=== PATIENT | female | born 1940 | race Caucasian/White ===

== ENCOUNTER 2017-04-27 00:24 | Day surgery (SDC) | payer MEDICARE, OTHER ==
[~2017-04-27 00:24] MED LIST: ACET500; CALCA500CH PO; CHOL10002 PO; CIPR500 PO; Centrum Silver1 EAC1 PO; FOLI1 PO; Flagyl500 MG PO; LIDO5TP TOP; LISI20 PO; Loperamide2 MG PO; METTREX2.5 PO; POLY500 PO; Preservision A1 EACH PO; Remicade100 MG IV; TUMS X-STR300 MG PO; Vitamin B Comple1 EA PO
[2017-04-27 09:40] LABS: Alanine Aminotransfer (ALT/SGP 22 U/L (12-78); Albumin, Blood 3.9 g/dL (3.4-5.0); Albumin/Globulin Ratio 1.3 (0.8-1.8); Alk Phos 60 U/L (50-136); Anion Gap 7 mmol/L (6-16); Aspartate Aminotrans (AST/SGOT 16 U/L (12-37); Bilirubin, Total 0.5 mg/dL (0.1-1.0); Blood Urea Nitrogen 19 mg/dL (8-24); Bun/Creatinine Ratio 25.2 (12.0-20.0); C-REACTIVE PROTEIN, EXT RANGE <0.290 mg/dL (0.000-0.300); CO2, Blood 28 mmol/L (21-32); Calcium, Blood 9.1 mg/dL (8.5-10.1); Chloride, Blood 106 mmol/L (98-108); Creatinine, Blood 0.76 mg/dL (0.40-1.00); Glomerular Filtration Rate >60 (60-); Glucose, Blood 91 mg/dL (70-99); Potassium, Blood 4.2 mmol/L (3.5-5.5); Sodium, Blood 141 mmol/L (136-145); Total Protein, Blood 6.9 g/dL (6.4-8.2)
[2017-04-27 11:45] LABS: BASOPHILS ABSOLUTE AUTO 0.02 K/mm3 (0.00-0.23); BASOPHILS PERCENT AUTO 0 % (0-2); EOSINOPHILS PERCENT AUTO 2 % (0-6); Hematocrit 43.3 % (33.0-51.0); Hemoglobin 14.3 g/dL (11.5-16.0); IMMATURE GRAN ABSOLUTE AUTO 0.01 K/mm3 (0.00-0.10); IMMATURE GRAN PERCENT AUTO 0 % (0-1); LYMPHOCYTES ABSOLUTE AUTO 1.69 K/mm3 (0.84-5.20); LYMPHOCYTES PERCENT AUTO 37 % (21-46); MONOCYTES ABSOLUTE AUTO 0.56 K/mm3 (0.16-1.47); MONOCYTES PERCENT AUTO 12 % (4-13); Mean Corpuscular HGB 33.9 pg (26.0-34.0); Mean Corpuscular Volume 103 fL (80-100); Mean Platelet Volume 10.9 fL (9.1-12.4); NEUTROPHILS ABSOLUTE AUTO 2.25 K/mm3 (1.96-9.15); NEUTROPHILS PERCENT AUTO 49 % (41-73); Platelet Count 260 K/mm3 (150-400); RDW Coefficient Variation 15.3 % (11.7-14.2); RDW Standard Deviation 57.6 fL (35.1-46.3); Red Blood Cell Count 4.22 M/mm3 (3.80-5.20); White Blood Cell Count 4.63 K/mm3 (4.00-11.30)
== END 2017-04-27 10:54 | disposition home or self-care (01) ==
LOC: ATC 00:24
PROVIDERS: Internal Medicine Rheumatology
DX: M06.09 Rheumatoid arthritis without rheumatoid factor, multiple sites (principal); Z79.899 Other long term (current) drug therapy; I10 Essential (primary) hypertension; J44.9 Chronic obstructive pulmonary disease, unspecified
CPT/HCPCS: 80053; 85025; 85651; 86140; 96413; J7050; Q5102-ZB

== ENCOUNTER 2017-07-06 00:21 | Day surgery (SDC) | payer MEDICARE, OTHER ==
[2017-07-06 09:18] LABS: BASOPHILS ABSOLUTE AUTO 0.02 K/mm3 (0.00-0.23); BASOPHILS PERCENT AUTO 0 % (0-2); EOSINOPHILS ABSOLUTE AUTO 0.03 K/mm3 (0.00-0.68); EOSINOPHILS PERCENT AUTO 1 % (0-6); Hemoglobin 14.4 g/dL (11.5-16.0); IMMATURE GRAN ABSOLUTE AUTO 0.01 K/mm3 (0.00-0.10); IMMATURE GRAN PERCENT AUTO 0 % (0-1); LYMPHOCYTES ABSOLUTE AUTO 1.15 K/mm3 (0.84-5.20); LYMPHOCYTES PERCENT AUTO 25 % (21-46); MONOCYTES ABSOLUTE AUTO 0.67 K/mm3 (0.16-1.47); MONOCYTES PERCENT AUTO 15 % (4-13); Mean Corpuscular HGB 33.1 pg (26.0-34.0); Mean Corpuscular HGB Conc 32.7 g/dL (31.5-36.5); Mean Corpuscular Volume 101 fL (80-100); Mean Platelet Volume 10.3 fL (9.1-12.4); NEUTROPHILS ABSOLUTE AUTO 2.66 K/mm3 (1.96-9.15); NEUTROPHILS PERCENT AUTO 59 % (41-73); Platelet Count 241 K/mm3 (150-400); RDW Coefficient Variation 14.1 % (11.7-14.2); RDW Standard Deviation 53.1 fL (35.1-46.3); Red Blood Cell Count 4.35 M/mm3 (3.80-5.20); White Blood Cell Count 4.54 K/mm3 (4.00-11.30)
[2017-07-06 09:41] LABS: Alanine Aminotransfer (ALT/SGP 25 U/L (12-78); Albumin/Globulin Ratio 1.3 (0.8-1.8); Alk Phos 64 U/L (50-136); Anion Gap 4 mmol/L (6-16); Aspartate Aminotrans (AST/SGOT 16 U/L (12-37); Bilirubin, Total 0.4 mg/dL (0.1-1.0); Blood Urea Nitrogen 26 mg/dL (8-24); Bun/Creatinine Ratio 30.2 (12.0-20.0); C-REACTIVE PROTEIN, EXT RANGE <0.290 mg/dL (0.000-0.300); CO2, Blood 27 mmol/L (21-32); Calcium, Blood 9.1 mg/dL (8.5-10.1); Chloride, Blood 107 mmol/L (98-108); Creatinine, Blood 0.86 mg/dL (0.40-1.00); Glomerular Filtration Rate >60 (60-); Glucose, Blood 92 mg/dL (70-99); Potassium, Blood 4.4 mmol/L (3.5-5.5); Sodium, Blood 138 mmol/L (136-145)
== END 2017-07-06 10:50 | disposition home or self-care (01) ==
LOC: ATC 00:21
PROVIDERS: Internal Medicine Rheumatology
DX: M06.09 Rheumatoid arthritis without rheumatoid factor, multiple sites (principal); I10 Essential (primary) hypertension; F32.9 Major depressive disorder, single episode, unspecified; Z87.891 Personal history of nicotine dependence; J44.9 Chronic obstructive pulmonary disease, unspecified
CPT/HCPCS: 80053; 85025; 85651; 86140; 96413; J7050; Q5102-ZB

== ENCOUNTER → 2017-09-20 | Outpatient (CLI) | payer MEDICARE, OTHER | END | disposition home or self-care (01) | LOC: PLD 09:56 → LAB SHORT 09:56 | DX: D48.5 Neoplasm of uncertain behavior of skin (principal) | CPT/HCPCS: 88305 ==

== ENCOUNTER → 2018-09-19 | Outpatient (CLI) | payer MEDICARE, OTHER | END | disposition home or self-care (01) | LOC: PLD 08:14 → LAB SHORT 08:14 | DX: D22.5 Melanocytic nevi of trunk (principal); D48.5 Neoplasm of uncertain behavior of skin | CPT/HCPCS: 88305 ==

== ENCOUNTER 2020-04-04 09:53 | Day surgery (SDC) | payer MEDICARE, OTHER ==
[~2020-04-04] VITALS: Ht 152.4 cm; Wt 39.3 kg
[2020-04-04] MEDS ORDERED: LISI20 PO (10:19)
--- NOTE | 2020-04-04 12:17 | NUR ---
04/04/20 1217 Leah Morales PT DID GREAT DURING RECOVER, NO COMPLAINTS OF PAIN OR NAUSEA, VERY TALKATIVE AND FUN. SHE IS READY TO BE DISCHARGED HOME.
== END 2020-04-04 12:17 | disposition home or self-care (01) ==
LOC: ORSCSDS 09:53
PROVIDERS: Podiatrist Foot & Ankle Surgery
PROC: 0QSP04Z Reposition Left Metatarsal with Internal Fixation Device, Open Approach (ICD-10-PCS; principal; 2020-04-04 11:15)
DX: M21.612 Bunion of left foot (principal); I10 Essential (primary) hypertension; Z87.891 Personal history of nicotine dependence; G62.9 Polyneuropathy, unspecified; Z79.899 Other long term (current) drug therapy
CPT/HCPCS: J0171; J0690; J1100; J2405; J2704; J3010; J7120

== ENCOUNTER 2022-02-01 09:55 | Emergency (ER) | payer MEDICARE, OTHER ==
[~2022-02-01] VITALS: Ht 152.4 cm; Wt 35.4 kg
[2022-02-01] MEDS ORDERED: OXYC5 PO (11:25)
== END 2022-02-01 11:49 | disposition home or self-care (01) ==
LOC: ER 09:55
DX: G89.11 Acute pain due to trauma (principal); S32.10XA Unspecified fracture of sacrum, initial encounter for closed fracture; I10 Essential (primary) hypertension; Z87.891 Personal history of nicotine dependence; X58.XXXA Exposure to other specified factors, initial encounter
CPT/HCPCS: 99284

== ENCOUNTER 2022-03-15 04:21 | Inpatient (IN) | payer MEDICARE, OTHER ==
[~2022-03-15] VITALS: Ht 152.4 cm; Wt 41.0 kg
[~2022-03-15 04:21] MED LIST changes: +OXYC5 PO
[2022-03-15 06:30] LABS: Hematocrit 29.3 % (33.0-51.0); Hemoglobin 9.2 g/dL (11.5-16.0); Mean Corpuscular HGB 27.1 pg (26.0-34.0); Mean Corpuscular HGB Conc 31.4 g/dL (31.5-36.5); Mean Corpuscular Volume 86 fL (80-100); Mean Platelet Volume 9.6 fL (9.1-12.4); Platelet Count 405 K/mm3 (150-400); RDW Standard Deviation 58.5 fL (35.1-46.3); White Blood Cell Count 6.78 K/mm3 (4.00-11.30)
[2022-03-15 06:42] LABS: Magnesium, Blood 2.8 mg/dL (1.6-2.4)
[2022-03-15 06:52] LABS: Albumin, Blood 2.1 g/dL (3.4-5.0); Albumin/Globulin Ratio 0.6 (0.8-1.8); Bilirubin, Total 0.2 mg/dL (0.1-1.0); Bun/Creatinine Ratio 38.7 (12.0-20.0); Calcium, Blood 10.4 mg/dL (8.5-10.1); Creatinine, Blood 2.22 mg/dL (0.40-1.00); Globulin, Blood 3.7 g/dL (2.2-4.0); Potassium, Blood 6.4 mmol/L (3.5-5.5); Total Protein, Blood 5.8 g/dL (6.4-8.2)
[2022-03-15 07:08] LABS: Influenza A, PCR NEGATIVE (NEGATIVE); Influenza B, PCR NEGATIVE (NEGATIVE); Resp Syncytial Virus, PCR NEGATIVE (NEGATIVE); SARS-Cov-2 (COVID-19) PCR, MMC NEGATIVE (NEGATIVE)
[2022-03-15 07:19] LABS: BASOPHILS PERCENT MAN 0 % (0-2); EOSINOPHILS PERCENT MAN 0 % (0-6); TOTAL CELLS COUNTED 100
[2022-03-15 07:23] LABS: LYMPHOCYTES ABSOLUTE MAN 0.27 K/mm3 (0.84-5.20); LYMPHOCYTES PERCENT MAN 4 % (21-46)
[2022-03-15 07:24] LABS: BAND PERCENT MAN 32 % (0-8); MONOCYTES PERCENT MAN 3 % (4-13); SEG NEUTROPHILS PERCENT MAN 61 % (41-73)
[2022-03-15 08:10] LABS: Calcium, Ionized (POC) 1.27 mmol/L (1.10-1.46); Chloride (POC) 106 mmol/L (98-108); Creatinine (POC) 2.1 mg/dL (0.6-1.0); Glucose (ISTAT POC) 195 mg/dL (70-99); Hemoglobin (POC) 8.2 g/dL (12.0-16.0); Potassium (POC) 5.1 mmol/L (3.5-5.5); Sodium (POC) 138 mmol/L (135-148); Total CO2 (POC) 27 mmol/L (21-32)
--- NOTE | 2022-03-15 11:52 | NUR ---
ARRIVAL TO ICU PT BROUGHT TO ICU VIA GURNEY. PT IS A&OX4. ANXIOUS AT TIMES, WHEN ASKING ABOUT MEDICAL HISTORY SHE REPEATEDLY STS "IT'S ALREADY ON MY FILE. I JUST WANT TO REST". SHE IS RECEIVING LR. LEVOPHED AT BEDSIDE IF NEEDED. MAP >65. NSR WITH RATE IN 80S. PT DENIES CP. ABDOMEN SLIGHTLY TENDER. DISTENDED AREA ON RUQ/RLQ. PT REPORTS IT HAS "GOTTEN BIGGER OVER THE LAST TWO WEEKS". SHE REPORTS DECREASED APPETITE AND RECENT WEIGHT LOSS. REPORT OF LOOSE STOOL AND INCONTINENCE OVER THE LAST MONTH. PUREWICK IN PLACE. PT REPORTS FEELING LIKE SHE CANNOT EMPTY HER BLADDER. ALMANZA PLACED AND SAMPLE SENT TO LAB. PRESSURE ULCER ON COCCYX, PHOTO IN CHART. SEE SHIFT ASSESSMENT.
[2022-03-15 12:59] LABS: Bun/Creatinine Ratio 41.6 (12.0-20.0); Calcium, Blood 9.4 mg/dL (8.5-10.1); Creatinine, Blood 1.78 mg/dL (0.40-1.00); Potassium, Blood 5.2 mmol/L (3.5-5.5)
[2022-03-15 13:22] LABS: International Normalized Ratio 1.04; Prothrombin Time Results 10.9 Sec (9.7-11.5)
[2022-03-15 13:39] LABS: Source, Urine Clean Catch
[2022-03-15 13:46] LABS: Appearance, Urine Clear (Clear); Bilirubin, Urine Neg (Neg); Blood, Urine Neg (Neg); Color, Urine Yellow (P-Yellow); Glucose Qualitative, Urine Neg (Neg); Ketones, Urine Neg (Neg); Leukocyte Esterase, Urine Neg (Neg); Nitrite, Urine Neg (Neg); Protein, Urine 2+ (Neg); Urobilinogen, Urine NORM (Normal)
[2022-03-15 13:58] LABS: Bacteria Not Seen /hpf; Hyaline Casts 0-2 /lpf (0-2); Red Blood Cells, Urine 0-2 /hpf (0-2); Squamous Epithelial Cells Not Seen /hpf (Few); White Blood Cells, Urine 0-2 /hpf (0-5)
[2022-03-15 15:09] LABS: Automated BF RBC Count 0.186 M/mm3 (0-0); Automated BF WBC Count 0.339 K/mm3 (0-999)
[2022-03-15 15:11] LABS: Body Fluid WBC Count 339 /mm3 (0-999); RBC Count, Body Fluid 186000 /mm3 (0-0)
--- NOTE | 2022-03-15 15:21 | NUR ---
UPDATE BEDSIDE THORACENTESIS COMPLETED BY RADIOLOGY AT BEDSIDE. PT TOLERATED WELL. REPORTS CONTINUED SOB WITH EXCERTION. PT REQUESTS TO REST AT THIS TIME. BED IN LOW POSITION, CALL LIGHT WITHIN REACH.
[2022-03-15 15:26] LABS: Appearance, Body Fluid Hazy (Clear); Color, Body Fluid Red (None-Yellow)
[2022-03-15 15:30] LABS: Lactate Dehydrogenase, Body Fl 993 U/L
[2022-03-15 15:33] LABS: Protein, Body Fluid 2.9 g/dL
[2022-03-15 16:42] LABS: Total Cell Count, Body Fluid 100
[2022-03-15 17:22] LABS: Hematocrit 29.3 % (33.0-51.0)
--- NOTE | 2022-03-15 17:30 | NUR ---
SHIFT SUMMARY PT REMAINS A&OX4. PLEASANT AFFECT AND PARTICIPATES IN CONVERSATION. PT REPORTS GENERALIZED WEAKNESS AND STS SHE HAS NOT BEEN SLEEPING WELL. SHE MAKES PURPOSEFUL MOVEMENTS WITH ALL EXTREMITIES AND ASSISTS WITH CARE. LUNGS ARE COARSE WITH RHONCHI, DIMINISHED IN BASES. SPO2 >93% ON 4L NC. THORACENTESIS DONE AT BEDSIDE TODAY. PT TOLERATED WELL. SMALL BANDAID IN PLACE OVER PUNCTURE SITE. NSR ON MONITOR WITH RATE 80S. MAP 59-68 WITH GOAL TO MAINTAIN MAP >55. LEVOPHED ON EMAR IF NEEDED. PT DRANK A MILKSHAKE, DENIED DINNER TRAY. REPORTS DECREASED APPETITE. ALMANZA PATENT AND DRAINING CLEAR/YELLOW URINE TO GRAVITY. STOOL SAMPLE COLLECTED TODAY. PT HAD 1 LARGE LIQUID BM, ATTENDS IN PLACE. PRESSURE ULCER TO COCCYX THAT HAS "BEEN THERE AWHILE", REPOSITIONED Q2. BED IN LOWEST POSITION, CALL LIGHT WITHIN REACH.
--- NOTE | 2022-03-15 20:05 | NUR ---
ASSUMED CARE OF PT AT 1900 PT RESTING IN BED AWAKE, MAKING PANTING SOUNDS. NO FAMILY OR GUESTS IN ROOM AT THIS TIME. SPO2 ALARMING FOR O2 SAT IN 80'S. NASAL SPO2 MONITOR INITIATED WITH BETTER PLETH AND READING. HR 90'S. BP 98/54 MAP OF 78. ALMANZA CATH DRAINING TO GRAVITY. PT STATES THAT SHE MAY NEED TO HAVE BM SOON. PT IS IN DEPENDS AT THIS TIME C/D/I. PT COMPLAINS OF 7/10 PAIN IN LOWER BACK. PRN MEDICATIONS GIVEN. SEE FULL ASSESSMENT FOR MORE INFORMATION.
--- NOTE | 2022-03-15 22:10 | NUR ---
CALLED HOSPITALIST DR HAILE. PT PAIN NOT MANAGED BY PRN TRISTEN. DR Hanna ORDERED FENT 25-50 MCG Q4 PRN.
[2022-03-16 03:43] LABS: Hematocrit 25.1 % (33.0-51.0); Hemoglobin 7.8 g/dL (11.5-16.0); Mean Corpuscular HGB 26.8 pg (26.0-34.0); Mean Corpuscular HGB Conc 31.1 g/dL (31.5-36.5); Mean Corpuscular Volume 86 fL (80-100); Mean Platelet Volume 9.4 fL (9.1-12.4); Platelet Count 315 K/mm3 (150-400); RDW Coefficient Variation 18.6 % (11.7-14.2); RDW Standard Deviation 57.4 fL (35.1-46.3); Red Blood Cell Count 2.91 M/mm3 (3.80-5.20); White Blood Cell Count 2.09 K/mm3 (4.00-11.30)
[2022-03-16 04:05] LABS: BAND PERCENT MAN 2 % (0-8); BASOPHILS ABSOLUTE MAN 0.02 K/mm3 (0.00-0.23); BASOPHILS PERCENT MAN 1 % (0-2); EOSINOPHILS ABSOLUTE MAN 0.22 K/mm3 (0.00-0.68); EOSINOPHILS PERCENT MAN 11 % (0-6); LYMPHOCYTES ABSOLUTE MAN 0.35 K/mm3 (0.84-5.20); LYMPHOCYTES PERCENT MAN 17 % (21-46); MONOCYTES ABSOLUTE MAN 0.06 K/mm3 (0.16-1.47); MONOCYTES PERCENT MAN 3 % (4-13); NEUTROPHILS ABSOLUTE MAN 1.42 K/mm3 (1.96-9.15); SEG NEUTROPHILS PERCENT MAN 66 % (41-73); TOTAL CELLS COUNTED 100
[2022-03-16 04:07] LABS: Albumin, Blood 1.6 g/dL (3.4-5.0); Albumin/Globulin Ratio 0.5 (0.8-1.8); Bilirubin, Total 0.3 mg/dL (0.1-1.0); Bun/Creatinine Ratio 42.6 (12.0-20.0); Calcium, Blood 8.9 mg/dL (8.5-10.1); Creatinine, Blood 1.29 mg/dL (0.40-1.00); Potassium, Blood 5.2 mmol/L (3.5-5.5); Total Protein, Blood 4.6 g/dL (6.4-8.2)
--- NOTE | 2022-03-16 05:51 | NUR ---
END OF SHIFT SUMMARY PT RESTING MOST THE SHIFT. A/O X4. LUNGS SOUNDS RHONCHI WITH DIMINISHED BASES. PERSISTANT COUGH, NON PRODUCTIVE THIS SHIFT. ALMANZA DRAINING TO GRAVITY WITH MODERATE OUTPUT THIS SHIFT. LOOSE STOOL BM. BP 70'S/50'S WITH HR 70'S. SPO2 >92% ON 4L NC. INSTANT DESAT WITH ANY EXERTION INCLUDING TALKING. LR RUNNING AT 150 MLS/HR. C/O PAIN IN LOWER AND MID BACK AREAS. PRESSURE WOUND ON COCCYX AREA COVERED WITH FOAM DRESSING. AREA WHERE PROCEDURE DONE WITH SMALL INCISION LOCATED ON MID BACK, DRESSING C/D/I. WILL CONTINUE TO MONITOR UNTIL REPORT GIVEN TO AM NURSE.
--- NOTE | 2022-03-16 07:15 | NUR ---
ASSUMPTION OF CARE PT WAKENS EASILY TO VERBAL STIMULI. PT REPORTS DECREASED APPETITE AND EATS MINIMAL AMOUNT OF BREAKFAST. ENCOURAGED TO DRINK ENSURE. PT C/O R SHOULDER/BACK AND GENERALIZED PAIN, MEDICATED PER EMAR. SHE REMAINS ON 4L NC WITH SPO2 >90%. SHE QUICKLY DESATURATES WITH PROLONGED CONVERSATION TO MID 80S. LUNGS ARE COARSE THROUGHOUT. NSR ON MONITOR WITH RATE IN 70S-80S. PT HYPOTENSIVE BUT MAP REMAINS >55. PT HAS LIQUID STOOL. ALMANZA PATENT AND DRAINING TO GRAVITY. BED IN LOW POSITION, CALL LIGHT WITHIN REACH. SEE SHIFT ASSESSMENT.
[2022-03-16 09:41] LABS: Stool Occult Blood Guaiac 1 Neg (Neg)
--- NOTE | 2022-03-16 13:21 | NUR ---
UPDATE DR JUAN CARLOS WEBSTER. NEW ORDER TO MAINTAIN MAP >60. PT AGREES TO PICC LINE PLACEMENT. PICC RN AT BEDSIDE.
--- NOTE | 2022-03-16 15:41 | NUR ---
Pt is 81, with hx of RA, HTN and COPD. She was admitted via ER with weakness yesterday. She reports losing 36 lbs in past 4.5 months unintentionally. She reports worsening weakness x's 2 weeks and dyspnea/cough x's [address] shows large mass in abdomen, a new liver mass. She also has dx of sepsis, pneumonia, and cancer with metastasis. Upon a brief discussion this morning she tells me she is still "absorbing" the new diagnosis of metastasis. She reports living with her , and she states she isn't sure he could physically care for her. She requests more time to process this information before making any decisions. Pain is also a major issue for this pt, currently being managed with fentanyl IV and oxycodone as needed. Palliative care to remain available.
--- NOTE | 2022-03-16 18:03 | NUR ---
SHIFT SUMMARY PT IS RECEIVING LEVOPHED 3MCG/MIN TO MAINTAIN MAP >60. SHE IS SINUS RHYTHM ON MONITOR WITH RATE IN 70S-80S. SHE IS ON 4L NC. SHE CONTINUES TO HAVE AN OCCASIONAL COUGH. LUNGS ARE COARSE, DIMINISHED IN BASES. EARLIER IN THE SHIFT SHE HAD R SHOULDER AND CHRONIC BACK PAIN, MEDICATED PER EMAR AND REPOSITIONED FOR COMFORT. SHE HAS BEEN SLEEPING ON AND OFF THROUGHOUT THE DAY. SHE TALKED WITH VISITORS THIS AFTERNOON. 1 LARGE LIQUID BM THIS AM. PT TALKED WITH FIRE FIGHTER AIRPORT. ENCOURAGED TO INCREASE CALORIC INTAKE. PT DRANK 2 ENSURES. ALMANZA PATENT AND DRAINING TO GRAVITY WITH 650ML OUTPUT. BED IN LOW POSITION, CALL LIGHT WITHIN REACH.
--- NOTE | 2022-03-16 19:46 | NUR ---
PATIENT AWAKE, AND RESTLESS. VERBALIZED THAT SHE IS FEELING SOB AND THAT SHE IS HAVING SEVERE PAIN 9/10 TO HER RIGHT SIDE INCREASING IN PAIN WITH DEEP BREATH. MEDICATED WITH PO OXYCODONE AND IV FENTANYL. PLACED AN ICE PACK TO RIGHT SIDE WHICH HELPED WITH THE PAIN YESTERDAY, AND PATIENT REPOSITIONED. PATIENT HAVING AUDIBLE WHEEZING WITH DEEP BREATH, UDN TX GIVEN. HYPOTENSION CONTINUES WITH LEVOPHED @ 3 MCG VIA PICC LINE TO RIGHT UPPER ARM. ALMANZA IN PLACE DRAINING CLEAR YELLOW URINE. DRESSING TO COCCYX CD&I
--- NOTE | 2022-03-16 21:32 | NUR ---
PATIENT AWAKE, C/O FEELING ANXIOUS AND REQUESTING SOMETHING TO HELP HER SLEEP. "JUST KNOCK ME OUT" DOCTOR LAZARA CALLED AND ONE TIME ORDER FOR ATIVAN OBTAINED.
--- NOTE | 2022-03-17 | NUR ---
PATIENT RESTING QUIETLY APPEARS TO BE SLEEPING. AWAKENS TO SLIGHT STIMULI, VERBALIZED THAT SHE IS FEELING LESS SOB AND PAIN IS 2/10. CONTINUE TO TITRATE LEVOPHED FOR HYPOTENSION. HUMIDIFICATION PLACED TO OXYGEN FOR COMFORT
--- NOTE | 2022-03-17 01:21 | NUR ---
PATIENT WAKE-UP FROM SOUND SLEEP ATTEMPTING TO GET OUT OF BED. LOOKING FOR HER BROTHERS. CONFUSED AND RESTLESS. WITH INCREASED ACTIVITY DECREASED OXYGEN. PATIENT PLACED ON NONREBREATHER 11L DUE TO MOUTH BREATHING. PATIENT NOW ANSWERING QUESTIONS APPROPRIATLY, YET CONTINUES TO HAVE GRUNTING BREATHS AND ATTEMPTS TO GET OUT OF BED FORGETING WHY SHE HAS MONITORS AND ALMANZA.
--- NOTE | 2022-03-17 02:50 | NUR ---
AT 0130 PATIENT MORE RELAXED AND CALM YET CONTINUES TO BE FORGETFUL. ABLE TO ASSIST WITH REPOSITIONING IN BED TO CHANGE LINEN AND LUCERO-CARE. PATIENT MEDICATED WITH FENTANYL TO HELP WITH BACK PAIN. PATIENT NOW SLEEPING WITH 5L/NC IN PLACE SATING 93-100% LEVOPHED TITRATED UP TO 4 MCG TO KEEP MAP >60.
[2022-03-17 03:56] LABS: Hematocrit 28.2 % (33.0-51.0); Hemoglobin 8.6 g/dL (11.5-16.0); Mean Corpuscular HGB 26.9 pg (26.0-34.0); Mean Corpuscular HGB Conc 30.5 g/dL (31.5-36.5); Mean Corpuscular Volume 88 fL (80-100); Platelet Count 343 K/mm3 (150-400); RDW Coefficient Variation 18.3 % (11.7-14.2); RDW Standard Deviation 57.8 fL (35.1-46.3); White Blood Cell Count 5.69 K/mm3 (4.00-11.30)
[2022-03-17 04:10] LABS: Bun/Creatinine Ratio 38.4 (12.0-20.0); Calcium, Blood 9.1 mg/dL (8.5-10.1); Creatinine, Blood 0.86 mg/dL (0.40-1.00); Magnesium, Blood 1.8 mg/dL (1.6-2.4); Potassium, Blood 4.7 mmol/L (3.5-5.5)
[2022-03-17 04:24] LABS: BAND PERCENT MAN 7 % (0-8); BASOPHILS PERCENT MAN 0 % (0-2); EOSINOPHILS ABSOLUTE MAN 0.45 K/mm3 (0.00-0.68); EOSINOPHILS PERCENT MAN 8 % (0-6); LYMPHOCYTES ABSOLUTE MAN 0.22 K/mm3 (0.84-5.20); LYMPHOCYTES PERCENT MAN 4 % (21-46); MONOCYTES ABSOLUTE MAN 0.11 K/mm3 (0.16-1.47); MONOCYTES PERCENT MAN 2 % (4-13); NEUTROPHILS ABSOLUTE MAN 4.89 K/mm3 (1.96-9.15); SEG NEUTROPHILS PERCENT MAN 79 % (41-73); TOTAL CELLS COUNTED 100
--- NOTE | 2022-03-17 05:17 | NUR ---
PATIENT WAKING UP EASILY WITH VERBAL STIMULI. BECOMING VERY SOB WITH FEELING OF AIR HUNGER AND RESTLESS AFTER REPOSITIONING. PATIENT LESS CONFUSED THAN LAST TIME. MEDICATED WITH FENTANYL AND PROVIDED EXTRA OXYGEN VIA NON-REBREATHER MASK.
--- NOTE | 2022-03-17 05:56 | NUR ---
DOCTOR YUE NOTIFIED OF PATIENTS AIR HUNGER AND INCREASED SOB AND DROP IN SAT DURING THE NIGHT. LUNG SOUNDS WITH RIGHT LUNG EXTREMELY DECREASED. AUDIBLE EXPIRATORY WHEEZES WITH ANXIETY. IV FLUIDS DECREASED TO 100 CC/HR AND CHEST XRAY ORDERED
--- NOTE | 2022-03-17 06:05 | NUR ---
SUMMARY PATIENT ANXIOUS OFF AND ON T/O NIGHT. NIGHT PROGRESSING BECOMING MORE RESTLESS WITH AIR HUNGER. AUDIBLE EXPIRATORY WHEEZING WITH INCREASED ANXIETY. MOIST COUGH WITH SCANT AMT OF THICK SPUTUM OBTAINED WITH DEEP ORAL SUCTION. NRB MASK IN PLACE UNTIL PATIENT ABLE TO RELAX. ON 4-5L/NC IN PLACE T/O NIGHT. LEVOPHED TITRATED T/O NIGHT CURRENTLY AT 4 MCG TO KEEP MAP >60.
--- NOTE | 2022-03-17 08:00 | NUR ---
ASSUMED CARE OF PATIENT AT 0700, SHE WAS SLEEPING WITH INCREASED RESPIRATIONS AND WORK OF BREATHING. OXYGEN VIA NASAL CANNULA, BP LABILE AND LEVOPHED @4MCG.
--- NOTE | 2022-03-17 10:07 | NUR ---
NGOC OLMOS,RN FROM PALLIATIVE CARE, PT'S TRES AND FRIEND KELLY HAD A FAMILY MEETING IN REGARDS TO CURRENT PLAN OF CARE. PT AND REPORT THAT SHE WOULD LIKE TO GET STABILIZED FROM THE PNEUMONIA AND BE ABLE TO GO HOME. SHE WANTS TO "FEEL BETTER" AND IS LOOKING FORWARD TO THE TREATMENT TO REMOVE SOME OF THE FLUID FROM HER LUNGS.
--- NOTE | 2022-03-17 10:48 | NUR ---
Joint visit this AM with Dr Orosco, this PC RN, director social service, and Primary RN. Pt resting in bed and appears significantly dyspneic. Pt's spouse Jose and family friend Osei at bedside. Dr Orosco reviews plan of care and discusses options. Comfort care and hospice also discussed. Offered therapeutic listening and answered questions. Pt and family would like to consider options. Ended visit to allow family and Pt time to process. Palliative Care will remain available.
--- NOTE | 2022-03-17 10:55 | NUR ---
HAS CANCELED THE THORACENTESIS BASED ON THE RESULTS OF THE LUNG SCAN, HE IS CURRENTLY SPEAKING WITH THE PATIENT ABOUT TREATMENT OPTIONS.
--- NOTE | 2022-03-17 11:42 | NUR ---
PT HAS BEEN INFORMED THAT THE THORACENTESIS WOULDN'T BE BENEFICIAL IN HER SITUATION. SHE UNDERSTANDS ABOUT THE CHEST TUBE AND THE MEDICATION. AND SPENT A GREAT DEAL OF TIME WITH HER EXPLAINING THE PROCEDURE, THE RISKS AND BENEFITS. SHE IS READY TO TRY THIS. SHE SEEMS TO BE ALMOST "STOIC" IN REGARDS TO ALL THE INFORMATION THAT HAS BEEN GIVEN TO HER. SHE JUST WANTS TO "BREATHE" BETTER.
--- NOTE | 2022-03-17 13:36 | NUR ---
PT PREPARED FOR CHEST TUBE PLACEMENT. PT WAS NOT LIKING THE POSITION, BUT TOLERATED WELL. INITIALLY OVER 300ML OF RED TINGED RETURN, PT GIVEN PAIN MEDS PER EMAR, THEN PUSHED THE tPA MEDICATION AND CLAMPED THE TUBING. PT WILL HAVE TUBING UNCLAMPED AT 1445. SHE IS TRYING TO REST. VISITORS COMING IN.
--- NOTE | 2022-03-17 17:53 | NUR ---
SUMMARY JARROD IS NEUROLOGICALLY INTACT, WITHOUT ANY DEFICIT RESPIRATORY: ON 4L/NC WITH NRB CLOSE BY. SHE USES THIS INTERMITTENTLY THROUGH- OUT THE DAY, NEEDED FOR BREATHING. SHE IS COURSE BREATH SOUNDS, DIMINISHED ON THE RIGHT. SHE HAS AUDIBLE RHONCHI MOST OF THE DAY WITH MOIST COUGH THAT SHE IS UNABLE TO RETURN ANY SPUTUM. HER OXYGEN SATURATIONS VARY FROM MID80'S TO 90'S. SHE HAS A CHEST TUBE TO THE RIB MIDCLAVICULAR LINE MID TRUNK, PLACED BY . IT HAS RETURNED OVER 650ML OF RED TINGED RETURN WITH A SLIGHT IM- PROVEMENT IN HER RESPIRATORY EFFORT. CARDIAC: SHE REMAIN ON NOREPINEPHRINE, MOSTLY AT 3-4 MCG/MIN TITRATE TO KEEP MAP >65. HEART RATE IN THE 80'S, MOSTLY SINUS, OCC PAC'S. GI: POOR APPETITE, TRIES TO DRINK ENSURE BUT GETS SHORT OF BREATH, FRIEND BROUGHT IN A MILKSHAKE THAT SHE HAS BEEN WORKING ON SINCE 1300. SHE HAS LIQUID BROWN DIARRHEA. : ALMANZA TO GRAVITY DRAINAGE WITH YELLOW RETURN. ONLY 300ML OUT THIS SHIFT. SKIN REMAINS COOL, PULSES PALP X 4, COCCYX REDDENED, MEPILEX IN PLACE, PINK LOTION TO THE PERINEUM REDDENED AREAS. PT CONTINUES TO ASK TO BE "KNOCKED OUT" AND HAS EXPRESSED HER DESIRE TO GO HOME. WILL CONTINUE TO WORK WITH FAMILY, PALLIATIVE CARE AND MEDICAL STAFF TO PLAN ACCORDINGLY. CONTINUE TO MONITOR AND TREAT, REPORT OFF TO NEXT SHIFT WHEN ABLE.
--- NOTE | 2022-03-17 18:57 | NUR ---
TO HELP PATIENT BE COMFORTABLE, PAIN MEDICATIONS GIVEN PER MAR, NEEDING TO TITRATE NOREPINEPHRINE HIGHER TO MAINTAIN MAP >65. WILL CONTINUE TO WATCH AND TREAT.
[2022-03-18 04:57] LABS: Hematocrit 29.3 % (33.0-51.0); Hemoglobin 8.9 g/dL (11.5-16.0); Mean Corpuscular HGB 27.1 pg (26.0-34.0); Mean Corpuscular HGB Conc 30.4 g/dL (31.5-36.5); Mean Corpuscular Volume 89 fL (80-100); Mean Platelet Volume 8.9 fL (9.1-12.4); Platelet Count 281 K/mm3 (150-400); RDW Coefficient Variation 18.6 % (11.7-14.2); RDW Standard Deviation 59.9 fL (35.1-46.3); Red Blood Cell Count 3.28 M/mm3 (3.80-5.20); White Blood Cell Count 7.26 K/mm3 (4.00-11.30)
[2022-03-18 05:26] LABS: BASOPHILS PERCENT MAN 0 % (0-2); Bun/Creatinine Ratio 28.9 (12.0-20.0); Calcium, Blood 9.2 mg/dL (8.5-10.1); Creatinine, Blood 0.76 mg/dL (0.40-1.00); EOSINOPHILS ABSOLUTE MAN 0.58 K/mm3 (0.00-0.68); EOSINOPHILS PERCENT MAN 8 % (0-6); LYMPHOCYTES ABSOLUTE MAN 0.14 K/mm3 (0.84-5.20); LYMPHOCYTES PERCENT MAN 2 % (21-46); MONOCYTES ABSOLUTE MAN 0.29 K/mm3 (0.16-1.47); MONOCYTES PERCENT MAN 4 % (4-13); NEUTROPHILS ABSOLUTE MAN 6.24 K/mm3 (1.96-9.15); Potassium, Blood 4.5 mmol/L (3.5-5.5); SEG NEUTROPHILS PERCENT MAN 86 % (41-73); TOTAL CELLS COUNTED 100
--- NOTE | 2022-03-18 06:24 | NUR ---
NO SIGNIFICANT EVENTS OR CHANGES TO PTS STATUS. VSS. PT REQUIRING PRN FENT Q1-2 HRS GIVING PRN OXY IN BETWEEN TO ALLOW FOR LONGER PAIN RELIEF. STILL ON 6L NC AND NON REBREATHER IN PT BED FOR PT TO USE FOR COMFORT. CHEST TUBE IN PLACE AND DRAINING TO GRAVITY.
--- NOTE | 2022-03-18 07:30 | NUR ---
ASSUMED CARE OF PT AT 0700, SHE AWAKENS TO VOICE, O2 VIA NC, TITRATING. PT'S NRB IS ON HER CHEST, USES FOR BLOW BY AND OCC SHE WILL PUT IT TO HER FACE FOR MORE "AIR". SHE CONTINUES TO COMPLAIN OF PAIN IN THE RIGHT FLANK/CHEST WALL. MEDICATED PER JUN, NOTED THAT SHE WAS HAVING LEAKING FROM THE RIGHT HAND IV, WILL ASSESS AND TREAT NECESSARY. CHEST TUBE WITH OVER 1LITER OF RED TINGED RETURN.
--- NOTE | 2022-03-18 09:33 | NUR ---
CHEST XRAY WAS ORDERED AND NOTED TO HAVE A PNEUMOTHORAX, READ XRAY AND CAME TO REPOSITION CHEST TUBE. DRESSING TAKEN DOWN, REDRESSED BY . PT TOLERATED ALL WELL. GOOD COUGH, GOOD OUTPUT FROM CHEST TUBE.
--- NOTE | 2022-03-18 16:53 | NUR ---
JARROD HAS BEEN RESTING FOR THE LAST HOUR OR SO, SHE IS ABLE TO COMMUNICATE HER NEEDS EFFECTIVELY AT THIS TIME.
--- NOTE | 2022-03-18 17:51 | NUR ---
JARROD CONTINUES ON THE NC @ 6L, WITH SATS >90% WHEN RELAXED. SHE GETS A BIT ANXIOUS AND WORKED UP WHEN SHE STARTLES AWAKE. SHE HAS BEEN MEDICATED OFTEN WITH FENTANYL AND WITH ROXICODONE PER EMAR. SHE CONTINUES WITH THE RIGHT LATERAL CHEST TUBE TO WALL SUCTION. SHE HAS HAD NEARLY 600ML OUT OF RED TINGED RETURN. THE DRESSING WAS CHANGED TODAY BY AND WAS REINFORCED BY ME. HER MANOLO WITH THE PICC LINE CONTINUES WITH HER LEVOPHED @ 4MCG/MIN, LR @ 100, AND NS @ 10ML FOR ANTIBIOTICS. ABD IS LESS TENDER AND SHE HAS NOT HAD ANY DIARRHEA THIS SHIFT. SHE CONTINUES WITH ALMANZA CATHETER WITH <300ML OUTPUT THIS SHIFT. HER ANKLES ARE EDEMATOUS, FEET AND SHINS ARE NOT. HER LEGS ARE WEAK, SHE CAN BARELY BRING HER LEGS OFF THE BED. THE FAMILY MET WITH PALLIATIVE CARE AND TODAY, QUESTIONS WERE ASKED AND ANSWERED. PLAN IS PATIENT TO GO HOME THIS WEEKEND ON HOSPICE. PALLIATIVE AND CIVIL ENGINEERING ASSISTANT WORKING ON PLACEMENT. WILL CONTINUE TO MONITOR AND TREAT. REPORTING OFF TO NEXT SHIFT WHEN ABLE.
[2022-03-19 04:02] LABS: Hematocrit 31.7 % (33.0-51.0); Hemoglobin 9.4 g/dL (11.5-16.0); Mean Corpuscular HGB 26.6 pg (26.0-34.0); Mean Corpuscular HGB Conc 29.7 g/dL (31.5-36.5); Mean Corpuscular Volume 90 fL (80-100); Mean Platelet Volume 9.1 fL (9.1-12.4); Platelet Count 309 K/mm3 (150-400); RDW Coefficient Variation 18.5 % (11.7-14.2); RDW Standard Deviation 59.1 fL (35.1-46.3); Red Blood Cell Count 3.53 M/mm3 (3.80-5.20); White Blood Cell Count 9.39 K/mm3 (4.00-11.30)
[2022-03-19 04:44] LABS: Bun/Creatinine Ratio 24.8 (12.0-20.0); Calcium, Blood 9.3 mg/dL (8.5-10.1); Creatinine, Blood 0.77 mg/dL (0.40-1.00); Potassium, Blood 4.6 mmol/L (3.5-5.5)
--- NOTE | 2022-03-19 05:38 | NUR ---
Shift summary: Pt alert and oriented to person, place and situation. She is able to follow simple commands but has been continuously asking for pain meds throughout the night so that she can just sleep. PRN fentanyl and oxycodone have been given for pain to her right chest where the chest tube is located. She started on 6L NC, but feels much more comfortable with a non-rebreather on, whenever she would take it off at night she seemed to get very anxious and would become increasingly SOB that would lead her to desat to the 80s. Her lung sounds are coarse/diminished throughout and d/t her weak cough she is unable to clear her secretions. Her chest tube drained ~210ml serosanguinous fluid. Her rhythm has varied between ST to SR with HR 80-110s. Her levophed drip has been titrated up to 6mcg to keep her MAP >65. She has edema to BLE, her hips and bilateral elbows. She only drank the second half of her Ensure and had 3 loose BMs at the beginning of the night. Her PICC line measures at 9cm and per Martha RN report she stated that PICC nurses have already confirmed that it's still ok to use. Family to come see patient today so POC can be decided. Will pass on to next shift.
--- NOTE | 2022-03-19 06:34 | NUR ---
Update: Early this morning the pt kept complaining that she was unable to catch her breath and she was in a ton of pain despite PRN fentanyl just given. Called Dr. Rivera to see if pt could have something for anxiety. PRN Ativen given.
--- NOTE | 2022-03-19 07:15 | NUR ---
Assumed care of pt at 0700. Report received from Doris BURNS. Pt on nonrebreather at 15+ LPM. SpO2 90% or greater, however pleth is poor quality on nose probe, which is the only probe that works on this patient. SR per monitor, rate 84. Chest tube in place, no leak. Fluctuation with respiration.
--- NOTE | 2022-03-19 11:27 | NUR ---
Dr Corey in to discuss Jen's plan of care with pt's spouse and family friend, Osei. Decision made by pt's spouse, Jose, to transition patient to comfort measures. At time of discussion, pt opens eyes to verbal stimulus, but does not answer questions or follow commands. Pt's children will be available to visit later today. Plan to continue levophed and nonrebreather mask until chidren are able to visit patient, and then these interventions will be discontinued.
--- NOTE | 2022-03-19 12:36 | NUR ---
Patient's spouse departed and plans to return at 4 pm with pt's sons. After departure of spouse, patient became alert, but confused. Pt disrobing, trying to sit up in bed, visibly uncomfortable. Medicated with fentanyl, as this is a medication that has been working for the patient. No therapeutic response noted. Tried roxanol and then ativan. Pt was still in distress and uncomfortable. Gave IV morphine, this helped with the patient's restlessness. She is not sitting up in bed with eyes closed- appearing to be sleeping, however brow is furrowed. Will conitnue to reassess.
--- NOTE | 2022-03-19 16:56 | NUR ---
Levophed stopped and nonrebreather removed when pt's son and granddaughters arrived. Pt premedicated with 5 mg morphine IV and 1 mg ativan IV. On removal of NRB, patient was grimacing, moaning, and restless. Required copious amounts of IV/SL morphine and IV ativan until she was finally comfortable. Pt's son and two granddaughters in room, visiting.
== END 2022-03-19 20:32 | DRG 180 ==
LOC: ER 04:21 → ICUE 11:05 → ICUW 11:05 → ICUE 11:38
PROVIDERS: Internal Medicine; Nurse Practitioner Acute Care; Student in an Organized Health Care Education/Training Program; ADMIT Hospitalist
PROC: 3E033XZ Introduction of Vasopressor into Peripheral Vein, Percutaneous Approach (ICD-10-PCS; 2022-03-15)
PROC: 3E03329 Introduction of Other Anti-infective into Peripheral Vein, Percutaneous Approach (ICD-10-PCS; 2022-03-15)
PROC: 0W9930Z Drainage of Right Pleural Cavity with Drainage Device, Percutaneous Approach (ICD-10-PCS; principal; 2022-03-17)
PROC: 02HV33Z Insertion of Infusion Device into Superior Vena Cava, Percutaneous Approach (ICD-10-PCS; 2022-03-17)
PROC: 3E04317 Introduction of Other Thrombolytic into Central Vein, Percutaneous Approach (ICD-10-PCS; 2022-03-17)
DX: C34.31 Malignant neoplasm of lower lobe, right bronchus or lung (principal); A41.9 Sepsis, unspecified organism; E43 Unspecified severe protein-calorie malnutrition; J18.9 Pneumonia, unspecified organism; R65.21 Severe sepsis with septic shock; J96.01 Acute respiratory failure with hypoxia; J93.9 Pneumothorax, unspecified; N17.9 Acute kidney failure, unspecified; J91.0 Malignant pleural effusion; J44.0 Chronic obstructive pulmonary disease with (acute) lower respiratory infection; N13.39 Other hydronephrosis; Z68.1 Body mass index [BMI] 19.9 or less, adult; R64 Cachexia; E87.4 Mixed disorder of acid-base balance; C78.7 Secondary malignant neoplasm of liver and intrahepatic bile duct; Z66 Do not resuscitate; Z51.5 Encounter for palliative care; M06.9 Rheumatoid arthritis, unspecified; E87.5 Hyperkalemia; Z20.822 Contact with and (suspected) exposure to COVID-19; I12.9 Hypertensive chronic kidney disease with stage 1 through stage 4 chronic kidney disease, or unspecified chronic kidney disease; E86.0 Dehydration; E83.52 Hypercalcemia; R16.0 Hepatomegaly, not elsewhere classified; N18.9 Chronic kidney disease, unspecified; D63.1 Anemia in chronic kidney disease; Z79.899 Other long term (current) drug therapy; Z79.811 Long term (current) use of aromatase inhibitors; Z79.891 Long term (current) use of opiate analgesic; Z87.19 Personal history of other diseases of the digestive system; Z90.710 Acquired absence of both cervix and uterus; Z90.722 Acquired absence of ovaries, bilateral; Z98.890 Other specified postprocedural states; Z87.891 Personal history of nicotine dependence
CPT/HCPCS: 0241U; 32555; 36415; 36569; 51702; 71045; 74176; 80047; 80048; 80053; 81001; 82272; 83605; 83615; 83735; 83880; 84145; 84157; 85014; 85018; 85025; 85027; 85610; 85730; 87040; 87070; 87205; 87449; 88108; 88305; 88342; 89051; 93005; 93010; 94640; 94644; 94664; 94760; 94762; 96365; 96375; 99285-25; A9270; C1751; C1769; J0456; J1815; J2060; J2270; J2543; J2997; J3010; J7030; J7040; J7050; J7060; J7120; J7799